=== PATIENT | female | born 1965 | race Caucasian/White ===

== ENCOUNTER → 2018-04-13 | Outpatient (CLI) | payer OTHER | LOC: FIMAGING 10:29 | PROVIDERS: ATTEND Internal Medicine | DX: Z12.31 Encounter for screening mammogram for malignant neoplasm of breast (principal) ==

== ENCOUNTER 2018-06-01 09:22 | Outpatient (CLI) | payer OTHER ==
[2018-06-01] MEDS ORDERED: NS 1,000 ML IV SCH (09:30)
[2018-06-01] MEDS ORDERED: NALOXONE HCL 0.4 MG/ML INJ IVP PRN (09:30)
[2018-06-01] MEDS ORDERED: ONDANSETRON 4 MG/2 ML VIAL IVP ONE (09:30)
[2018-06-01] MEDS ORDERED: fentaNYL 100 MCG/2 ML INJ IVP PRN (09:30)
[2018-06-01] MEDS ORDERED: MIDAZOLAM 2 MG/2 ML VIAL IVP PRN (09:30)
[2018-06-01] MEDS ORDERED: FLUMAZENIL 0.5 MG/5 ML MDV IVP PRN (09:30)
[2018-06-01] MEDS ORDERED: LIDOCAINE 1% 300 MG/30 ML SDV ONE (09:52)
--- NOTE | 2018-06-01 10:26 | PDPROPOC ---
Sedation Plan of Care ASA Classification: ASA 2 Mallampati Score: Class 2 Mallampati Reference Image:
--- NOTE | 2018-06-01 10:26 | PDRADPRE ---
Radiology History & Physical Indication for procedure: liver disease Home medications: Albuterol 2 puffs PRN PRN 05/22/18 [Last Taken Unknown] Augmentin 875 MG TAB (*) 875 mg PO BID 05/31/18 [Last Taken Unknown] Ibuprofen PRN 05/31/18 [Last Taken Unknown] Allergies/Adverse Reactions: No Allergies [NKDA] Allergy (Verified 05/31/18 08:02) Mental status: A&Ox3 Lungs exam: clear to auscultation
[2018-06-01] MEDS ORDERED: fentaNYL 100 MCG/2 ML INJ ONE (10:58)
[2018-06-01] MEDS ORDERED: MIDAZOLAM 2 MG/2 ML VIAL ONE (10:58)
[2018-06-01] MEDS ORDERED: ONDANSETRON 4 MG/2 ML VIAL IVP PRN (11:22)
[2018-06-01] MEDS ORDERED: oxyCODONE IR 5 MG TAB PO PRN (11:22)
--- NOTE | 2018-06-01 11:22 | PDRADPN ---
Radiology Procedure Note Date of Procedure: 06/01/18 Radiologist: Tyree Raman Anesthesia: IV Sedation Pre-op Diagnosis: elevated LFTs Post-op Diagnosis: same Procedure: non-target liver biopsy Inf/Abcess present in the surg proc area at time of surgery?: No
[2018-06-01 14:16] VITALS: BP 114/78
== END 2018-06-01 14:32 | disposition home or self-care (01) ==
LOC: FIMAGING 09:22
PROVIDERS: ATTEND Physician Assistant
PROC: 0FB03ZX Excision of Liver, Percutaneous Approach, Diagnostic (ICD-10-PCS; principal; 2018-06-01 11:22)
DX: K73.1 Chronic lobular hepatitis, not elsewhere classified (principal)
CPT/HCPCS: J2250; J2310; J2405; J3010

== ENCOUNTER 2018-06-10 19:20 | Emergency (ER) | payer OTHER ==
--- NOTE | 2018-06-10 20:40 | EDPHY ---
H & P Time Seen by Provider: 06/10/18 20:04 HPI/ROS: CHIEF COMPLAINT: Right upper quadrant pain HISTORY OF PRESENT ILLNESS: Patient is a 52-year-old female who has had ongoing elevated liver function tests. The she has been previously worked up for hepatitis which was negative. She had a right upper quadrant liver biopsy on 06/02/2018. She states the night after the procedure she had discomfort but since that time she has been doing well. On she did sit ups. She states she normally does not do sit-ups. Her back felt fairly tight after the sit ups. She had her push on her back. Once he push on her back she had sudden right upper quadrant discomfort. It is worse with movement. Worse when she takes a deep breath. She is not short of breath. No cough or fever. No nausea or vomiting. Patient's pain improves at rest without movement. REVIEW OF SYSTEMS: 10 systems were reveiwed and are negative with the exception of the elements mentioned in the history of present illness. Past Medical/Surgical History: Includes elevated liver function tests Smoking Status: Never smoked Physical Exam: Vitals noted GENERAL: Well-appearing, in no acute distress, alert. HEENT: Eyes normal to inspection, normal pharynx, no signs of dehydration. NECK: Normal, supple. RESPIRATORY: Clear to auscultation bilaterally, no rales, rhonchi or wheezing. CVS: Regular rate and rhythm, no rubs, murmurs, or gallops. ABDOMEN: Soft, right upper quadrant tenderness to palpation with no rebound or guarding, nondistended, no organomegaly. BACK: Normal to inspection, no CVA tenderness. SKIN: Normal color, no rash, warm, dry. No pallor. EXTREMITIES: No pedal edema, no calf tenderness, no Homans sign or cords, no joint swelling. NEURO/PSYCH: Alert and oriented, normal mood and affect, normal motor sensory exam. Constitutional: Initial Vital Signs Temperature (C) 37.2 C 06/10/18 19:39 Heart Rate 86 06/10/18 19:39 Respiratory Rate 20 06/10/18 19:39 Blood Pressure 113/71 06/10/18 19:39 O2 Sat (%) 98 06/10/18 19:39 O2 Delivery Mode Room Air Allergies/Adverse Reactions: No Allergies [NKDA] Allergy (Verified 06/10/18 19:38) Home Medications: Medication Instructions Recorded Albuterol 2 puffs PRN PRN 05/22/18 Ibuprofen PRN 05/31/18 Medical Decision Making ED Course/Re-evaluation: In the emergency department discussed possible etiologies with the patient. I answered all her questions. IV was placed. Laboratory studies were obtained. Patient's CT of her abdomen pelvis. Patient's CBC and chemistry unremarkable. LFTs were normal. CT: Please refer the dictated report by Dr. Knapp. No acute disease noted. Differential Diagnosis: My differential includes but is not limited to hepatitis, hematoma, diaphragmatic perforation, costochondritis, musculoskeletal strain, pulmonary embolus, pleurisy - Data Points Laboratory Results: Laboratory Results 06/10/18 21:17 06/10/18 21:17 06/10/18 06/10/18 06/10/18 21:17 21:17 21:17 WBC RBC Hgb Hct MCV MCH MCHC RDW Plt Count MPV Neut % (Auto) Lymph % (Auto) [place] % (Auto) Eos % (Auto) Baso % (Auto) Nucleat RBC Rel Count Absolute Neuts (auto) Absolute Lymphs (auto) Absolute Monos (auto) Absolute Eos (auto) Absolute Basos (auto) Absolute Nucleated RBC Immature Gran % Immature Gran # PT 14.5 SEC SEC (12.0-15.0) INR 1.11 (0.83-1.16) APTT 31.7 SEC SEC (23.0-38.0) Sodium 136 mEq/L mEq/L (135-145) Potassium 4.4 mEq/L mEq/L (3.3-5.0) Chloride 100 mEq/L mEq/L (97-110) Carbon Dioxide 26 mEq/l mEq/l (22-31) Anion Gap 10 mEq/L mEq/L (6-14) BUN 9 mg/dL mg/dL (7-23) Creatinine 0.5 mg/dL L mg/dL (0.6-1.0) Estimated GFR > 60 Glucose 97 mg/dL mg/dL (70-100) Calcium 9.4 mg/dL mg/dL (8.5-10.4) Total Bilirubin 0.7 mg/dL mg/dL (0.1-1.4) Conjugated Bilirubin 0.2 mg/dL mg/dL (0.0-0.5) Unconjugated Bilirubin 0.5 mg/dL mg/dL (0.0-1.1) AST 72 IU/L H IU/L (14-46) ALT 91 IU/L H IU/L (9-52) Alkaline Phosphatase 69 IU/L IU/L (38-126) Total Protein 7.1 g/dL g/dL (6.3-8.2) Albumin 4.2 g/dL g/dL (3.5-5.0) Lipase 114 IU/L IU/L (23-300) Beta HCG, Qual NEGATIVE 06/10/18 21:17 WBC 9.64 10^3/uL H 10^3/uL (3.80-9.50) RBC 4.66 10^6/uL 10^6/uL (4.18-5.33) Hgb 13.6 g/dL g/dL (12.6-16.3) Hct 40.4 % % (38.0-47.0) MCV 86.7 fL fL (81.5-99.8) MCH 29.2 pg pg (27.9-34.1) MCHC 33.7 g/dL g/dL (32.4-36.7) RDW 13.4 % % (11.5-15.2) Plt Count 210 10^3/uL 10^3/uL (150-400) MPV 11.1 fL fL (8.7-11.7) Neut % (Auto) 67.2 % % (39.3-74.2) Lymph % (Auto) 15.6 % % (15.0-45.0) [place] % (Auto) 10.1 % % (4.5-13.0) Eos % (Auto) 6.4 % % (0.6-7.6) Baso % (Auto) 0.4 % % (0.3-1.7) Nucleat RBC Rel Count 0.0 % % (0.0-0.2) Absolute Neuts (auto) 6.48 10^3/uL 10^3/uL (1.70-6.50) Absolute Lymphs (auto) 1.50 10^3/uL 10^3/uL (1.00-3.00) Absolute Monos (auto) 0.97 10^3/uL H 10^3/uL (0.30-0.80) Absolute Eos (auto) 0.62 10^3/uL H 10^3/uL (0.03-0.40) Absolute Basos (auto) 0.04 10^3/uL 10^3/uL (0.02-0.10) Absolute Nucleated RBC 0.00 10^3/uL 10^3/uL (0-0.01) Immature Gran % 0.3 % % (0.0-1.1) Immature Gran # 0.03 10^3/uL 10^3/uL (0.00-0.10) PT INR APTT Sodium Potassium Chloride Carbon Dioxide Anion Gap BUN Creatinine Estimated GFR Glucose Calcium Total Bilirubin Conjugated Bilirubin Unconjugated Bilirubin AST ALT Alkaline Phosphatase Total Protein Albumin Lipase Beta HCG, Qual Medications Given: Discontinued Medications Sodium Chloride (Ns) 1,000 mls @ 0 mls/hr IV EDNOW ONE; Wide Open PRN Reason: Protocol Stop: 06/10/18 20:43 Last Admin: 06/10/18 21:20 Dose: 1,000 mls Ketorolac Tromethamine (Toradol) 30 mg IVP EDNOW ONE Stop: 06/10/18 20:43 Last Admin: 06/10/18 21:20 Dose: 30 mg Departure - Departure Disposition: Home, Routine, Self-Care Clinical Impression: Abdominal pain Qualifiers: Abdominal location: right upper quadrant Qualified Code(s): R10.11 - Right upper quadrant pain Condition: Good Instructions: Abdominal Pain (ED) Additional Instructions: Return with increasing pain, fever, vomiting or any other concerns. Referrals: Shannen Glasgow MD [Primary Care Provider] - 5-7 days, call for appt.
[2018-06-10] MEDS ORDERED: NS 1,000 ML IV ONE (20:42)
[2018-06-10] MEDS ORDERED: KETOROLAC 30 MG/1 ML SDV IVP ONE (20:42)
[2018-06-10] MEDS ORDERED: KETOROLAC 30 MG/1 ML SDV ONE (21:16)
[2018-06-10 21:44] LABS: PLATELET COUNT 210 10^3/uL (150-400)
[2018-06-10 21:52] LABS: INR 1.11 (0.83-1.16); PROTIME(PATIENT) 14.5 SEC (12.0-15.0)
[2018-06-10] MEDS ORDERED: IOPAMIDOL (ISOVUE-300) 100 ML BTL ONE (21:54)
[2018-06-10 22:50] VITALS: BP 108/67
== END 2018-06-10 22:48 | disposition home or self-care (01) ==
DX: R10.11 Right upper quadrant pain (principal); E86.9 Volume depletion, unspecified
CPT/HCPCS: 96374; J1885; Q9967

== ENCOUNTER → 2018-09-08 | Outpatient (CLI) | payer OTHER ==
[~2018-09-08] MED LIST: LIDOCAINE 1% 300 MG/30 ML SDV ONE
== END ==
LOC: FIMAGING 10:09
PROVIDERS: ATTEND Internal Medicine
PROC: 0G9K3ZX Drainage of Thyroid Gland, Percutaneous Approach, Diagnostic (ICD-10-PCS; principal; 2018-09-08)
DX: E04.1 Nontoxic single thyroid nodule (principal)

== ENCOUNTER → 2018-09-13 | Outpatient (CLI) | payer OTHER | LOC: FIMAGING 09:32 | PROVIDERS: ATTEND Radiology Diagnostic Radiology | DX: J02.9 Acute pharyngitis, unspecified (principal); Z98.890 Other specified postprocedural states ==